=== PATIENT | male | born 1950 | race Caucasian/White ===

== ENCOUNTER 2020-09-02 18:30 | Inpatient (IN) | payer MEDICARE, OTHER ==
[~2020-09-02] VITALS: Ht 175.3 cm; Wt 91.6 kg
[2020-09-02] MEDS ORDERED: Omnipaque 350 100ml vial INJ PRN (19:00)
--- NOTE | 2020-09-02 19:00 | NUR ---
ED Nurse Note:pt. came from home with SOB on exersion, pt. is A/IOx4, VSS, blood was sent to labs, EKG done,covid done
--- NOTE | 2020-09-02 19:00 | Emergency Room Report ---
History of Present Illness General Chief Complaint: Dyspnea/Respdistress Source: Patient Present Illness HPI 69-year-old male history of hypertension, myasthenia gravis, diabetes, presents with shortness of breath over the past couple weeks, worse with exertion alleviated with rest severity is moderate, intermittent no chest pain no nausea no vomiting no fevers no chills no cough no congestion patient presents for evaluation of his shortness of breath he also received IVIG today Allergies: Coded Allergies: PENICILLINS (Verified Allergy, Unknown, 09/02/20) COVID-19 Screening Contact w/high risk pt: No Experienced COVID-19 symptoms?: Yes COVID-19 Testing performed BRIDGE WELDER: No Patient History Past Medical History: see triage record Reviewed Nursing Documentation: PMH: Agreed; PSxH: Agreed Nursing Documentation-PMH Past Medical History: No History, Except For Hx Diabetes: Yes Review of Systems All Other Systems: negative except mentioned in HPI Physical Exam Vital Signs Date Time Temp Pulse Resp B/P (MAP) Pulse Ox O2 Delivery O2 Flow Rate FiO2 09/02/20 18:35 98.4 104 20 170/81 (110) 92 Room Air Sp02 EP Interpretation: reviewed, normal General Appearance: well appearing, no apparent distress, alert Head: normocephalic, atraumatic Eyes: bilateral eye PERRL, bilateral eye EOMI ENT: uvula midline, moist mucus membranes Neck: supple, thyroid normal, supple/symm/no masses Respiratory: lungs clear, accessory muscle use, speaking full sentences Cardiovascular #1: normal peripheral pulses, no edema, no gallop, no murmur, tachycardia Gastrointestinal: non tender, soft, no guarding, no rebound Musculoskeletal: normal inspection Neurologic: alert, oriented x3 Psychiatric: mood/affect normal Skin: no rash, warm/dry Medical Decision Making Diagnostic Impression: Primary Impression: Respiratory distress Additional Impressions: Dyspnea Qualified Codes: R06.00 - Dyspnea, unspecified Tachycardia ER Course 69-year-old male presents with shortness of breath differential diagnosis includes ACS, myasthenia crisis, pneumonia, Covid Troponin negative, cannot conduct a negative inspiratory force however patient was pulling in good incentive spirometry volumes Covid negative, will admit patient for observation given Continued shortness of breath patient may need an echo cardiogram Chest x-ray negative no evidence of pneumonia we will admit patient for continued observation and treatment Patient admitted to Dr. Pham Laboratory Tests Test 09/02/20 19:00 09/02/20 19:07 White Blood Count 9.5 K/UL (4.8-10.8) Red Blood Count 4.80 M/UL (4.70-6.10) Hemoglobin 14.0 G/DL (14.2-18.0) L Hematocrit 43.3 % (42.0-52.0) Mean Corpuscular Volume 90 FL (80-99) Mean Corpuscular Hemoglobin 29.2 PG (27.0-31.0) Mean Corpuscular Hemoglobin Concent 32.4 G/DL (32.0-36.0) Red Cell Distribution Width 12.9 % (11.6-14.8) Platelet Count 310 K/UL (150-450) Mean Platelet Volume 6.5 FL (6.5-10.1) Neutrophils (%) (Auto) % (45.0-75.0) Lymphocytes (%) (Auto) % (20.0-45.0) Monocytes (%) (Auto) % (1.0-10.0) Eosinophils (%) (Auto) % (0.0-3.0) Basophils (%) (Auto) % (0.0-2.0) Differential Total Cells Counted 100 Neutrophils % (Manual) 82 % (45-75) H Lymphocytes % (Manual) 13 % (20-45) L Monocytes % (Manual) 5 % (1-10) Eosinophils % (Manual) 0 % (0-3) Basophils % (Manual) 0 % (0-2) Band Neutrophils 0 % (0-8) Platelet Estimate Adequate Platelet Morphology Normal Red Blood Cell Morphology Normal Sodium Level 140 MMOL/L (136-145) Potassium Level 4.2 MMOL/L (3.5-5.1) Chloride Level 100 MMOL/L (98-107) Carbon Dioxide Level 29 MMOL/L (21-32) Blood Urea Nitrogen 19 mg/dL (7-18) H Creatinine 1.5 MG/DL (0.55-1.30) H Estimated Glomerular Filtration Rate 46.4 mL/min (>60) Glucose Level 283 MG/DL (74-106) H Uric Acid 6.7 MG/DL (2.6-7.2) Calcium Level 9.3 MG/DL (8.5-10.1) Total Bilirubin 0.2 MG/DL (0.2-1.0) Aspartate Amino Transferase (AST) 26 U/L (15-37) Alanine Aminotransferase (ALT) 43 U/L (12-78) Alkaline Phosphatase 52 U/L (46-116) Total Creatine Kinase 174 U/L (26-308) Troponin I 0.017 ng/mL (0.000-0.056) Pro-B-Type Natriuretic Peptide 65 pg/mL (0-125) Total Protein 9.4 G/DL (6.4-8.2) H Albumin 3.8 G/DL (3.4-5.0) Globulin 5.6 g/dL Albumin/Globulin Ratio 0.7 (1.0-2.7) L POC Whole Blood Glucose Pending Microbiology Date/Time Source Procedure Growth Status 09/02/20 18:50 Nasopharynx SARS-CoV-2 RdRp Gene Assay - Final Complete EKG Diagnostic Results Troponin ordered: Yes When was troponin ordered?: Sep 02, 2020 - 1834 EKG Time: 18:50 EP Interpretation: Sinus tachycardia, rate 109, QTc 409, no acute ST elevations, normal axis Rhythm Strip Diag. Results Rhythm Strip Time: 18:59 EP Interpretation: yes Rate: 106 Rhythm: no PVC's, no ectopy, other - Sinus tachycardia Last Vital Signs Date Time Temp Pulse Resp B/P (MAP) Pulse Ox O2 Delivery O2 Flow Rate FiO2 09/02/20 18:35 98.4 104 20 170/81 (110) 92 Room Air Disposition: ADMITTED INPATIENT Condition: Stable Marc Ignacio MD Sep 02, 2020 19:00
[2020-09-02 19:08] LABS: HEMATOCRIT 43.3 % (42.0-52.0); MEAN CORPUSCULAR VOLUME 90 FL (80-99); PLATELET COUNT 310 K/UL (150-450); RED CELL DISTRIBUTION WIDTH 12.9 % (11.6-14.8); WHITE BLOOD COUNT 9.5 K/UL (4.8-10.8)
[2020-09-02 19:11] VITALS: BP 157/81
--- NOTE | 2020-09-02 19:14 | NUR ---
HAND-OFF: Report given to Liseth.
[2020-09-02 19:15] VITALS: BP 165/69
--- NOTE | 2020-09-02 19:15 | NUR ---
ED Nurse Note: Report received from KIMBERLY Montero. Patient is resting in bed. He is breathing normal and unlabored at this time with 97% o2 saturation on RA. He states breathing becomes difficult with exertion.
[2020-09-02 19:37] LABS: ALANINE AMINOTRANSFERASE 43 U/L (12-78); ALBUMIN 3.8 G/DL (3.4-5.0); ALBUMIN/GLOBULIN RATIO 0.7 (1.0-2.7); ALKALINE PHOSPHATASE 52 U/L (46-116); ASPARTATE AMINO TRANSFERASE 26 U/L (15-37); BILIRUBIN,TOTAL 0.2 MG/DL (0.2-1.0); BLOOD UREA NITROGEN 19 mg/dL (7-18); CALCIUM 9.3 MG/DL (8.5-10.1); CARBON DIOXIDE 29 MMOL/L (21-32); CHLORIDE 100 MMOL/L (98-107); CREATININE 1.5 MG/DL (0.55-1.30); POTASSIUM 4.2 MMOL/L (3.5-5.1); SODIUM 140 MMOL/L (136-145)
[2020-09-02] MEDS ORDERED: DiphenhydrAMINE 50mg/ml Inj IVP ONE (19:45)
[2020-09-02] MEDS ORDERED: Solu-MEDROL 125mg Inj IVP ONE (19:45)
[2020-09-02] MEDS ORDERED: EPINEPHrine 1mg/1ml Amp IM ONE (20:00)
[2020-09-02] MEDS ORDERED: Insulin Human Regular 100units/ml 3ml IV ONE (20:00)
--- NOTE | 2020-09-02 20:00 | NUR ---
ED Nurse Note: REYNALDO bedside speaking with patient. Patient refused CT at this time. He is very concerned with his elevated BP and blood sugar. Will administer BP medication and insulin as ordered. Pt states he is allergic to contrast. Patient agreed with hospital admission.
[2020-09-02] MEDS ORDERED: AMLODIPINE BESYL5 MG ORAL (20:19)
[2020-09-02] MEDS ORDERED: LANTUS SOL100 UNIT/1 SUBQ (20:19)
[2020-09-02] MEDS ORDERED: PYRIDOSTIGMINE60 MG ORAL (20:19)
[2020-09-02] MEDS ORDERED: LOTENSIN20 MG ORAL (20:19)
[2020-09-02] MEDS ORDERED: ASPIRIN81 MG ORAL (20:19)
[2020-09-02] MEDS ORDERED: CRESTOR10 M2 ORAL (20:19)
[2020-09-02] MEDS ORDERED: TRULICITY0.75 MG/0. SQ (20:19)
--- NOTE | 2020-09-02 20:45 | NUR ---
ED Nurse Note: Report given to KIMBERLY Duque. Patient states "I feel better now".
[2020-09-02] MEDS ORDERED: Promethazine/Codeine 5ml UD ORAL PRN (21:15)
[2020-09-02] MEDS ORDERED: Zolpidem 5mg tab ORAL PRN (21:15)
[2020-09-02] MEDS ORDERED: Miralax 17gm pkt ORAL PRN (21:15)
[2020-09-02 21:22] VITALS: BP 149/65
--- NOTE | 2020-09-02 21:29 | NUR ---
ED Nurse Note: Patient accu check shows Blood Sugar of 221 at this time.
--- NOTE | 2020-09-02 21:30 | NUR ---
ED Nurse Note: Patient is stable for transfer to tele unit at this time as ordered. He is aaox4, breathing is normal at this time. NAD noted. Patient taken to unit via gurney while connected to associate director career services by keara and RN. He took all belongings with him. IV is patent.
[2020-09-02 21:38] LABS: CREATINE KINASE 174 U/L (26-308)
--- NOTE | 2020-09-02 22:15 | NUR ---
NURSE NOTES: Pt received from KIMBERLY Childers. Pt is sitting at the bedside and denies any pain. Admitting vitals T 98.1 P79 BP137/58 O2 98% R20. Pt is A/Ox4 and ambulatory; pt c/o mild shortness of breath with standing and walking. Pt is on cardiac monitoring SR and asymptomatic. Pt is sating well on RA and c/o SOB. Pt has IV RAC 20G SL patent with skin dry and intact. Pt voids and is continent x2. Pt has diminished lung sounds bilaterally. Bowel sounds active x4. PMSCx4 and strength 5/5. Bed is locked in lowest position and call light is within reach. Will continue to monitor. Addendum: 09/03/20 at 0021 by Neto Hare RN Pt has no pressure ulcers or wounds. Pt c/o redness of face without fever, pain, or headache.
--- NOTE | 2020-09-02 22:20 | NUR ---
NURSE NOTES: Admitting orders received from Dr. Pham and Dr. Nugyen. Will continue to monitor.
[2020-09-03] VITALS: BP 137/58
[2020-09-03 04:00] VITALS: BP 151/57
[2020-09-03] MEDS: NovoLOG Insulin Flexpen SUBQ SCH ×4 (06:39→21:05)
[2020-09-03 06:44] LABS: BASOPHILS % (AUTO) 0.7 % (0.0-2.0); EOSINOPHILS % (AUTO) 0.2 % (0.0-3.0); HEMATOCRIT 44.5 % (42.0-52.0); HEMOGLOBIN 14.1 G/DL (14.2-18.0); LYMPHOCYTES % (AUTO) 15.9 % (20.0-45.0); MEAN CORPUSCULAR VOLUME 92 FL (80-99); MONOCYTES % (AUTO) 11.4 % (1.0-10.0); NEUTROPHILS % (AUTO) 71.9 % (45.0-75.0); PLATELET COUNT 318 K/UL (150-450); RED BLOOD COUNT 4.84 M/UL (4.70-6.10); RED CELL DISTRIBUTION WIDTH 13.2 % (11.6-14.8); WHITE BLOOD COUNT 9.7 K/UL (4.8-10.8)
[2020-09-03 07:12] LABS: ALANINE AMINOTRANSFERASE 42 U/L (12-78); ALBUMIN 3.8 G/DL (3.4-5.0); ALBUMIN/GLOBULIN RATIO 0.7 (1.0-2.7); ALKALINE PHOSPHATASE 43 U/L (46-116); ASPARTATE AMINO TRANSFERASE 23 U/L (15-37); BILIRUBIN,TOTAL 0.2 MG/DL (0.2-1.0); BLOOD UREA NITROGEN 13 mg/dL (7-18); CALCIUM 8.8 MG/DL (8.5-10.1); CHOLESTEROL 134 MG/DL (< 200); CREATININE 1.1 MG/DL (0.55-1.30); HDL CHOLESTEROL 64 MG/DL (40-60); TRIGLYCERIDES 101 MG/DL (30-150)
--- NOTE | 2020-09-03 07:20 | NUR ---
NURSE HAND-OFF REPORT: Important Events on Shift:Pt admitted to tele unit. C/O of mild shortness of breath with exertion Patient Status: Stable and breathing unlabored at rest Diet: CCHO Medium Pending Orders: Pending Results/Labs:AM Labs Pending MD notification: Latest Vital Signs: Temperature 97.9 , Pulse 88 , B/P 151 /57 , Respiratory Rate 18 , O2 SAT 97 , Room Air, O2 Flow Rate . Vital Sign Comment: VSS EKG Rhythm: Sinus Rhythm Rhythm change?: N MD Notified?: - MD Response: Latest Sarabia Fall Score: 20 Fall Risk: Low Risk Safety Measures: Call light Within Reach, Bed Alarm , Side Rails Side Rails x2, Bed position Low and Locked. Fall Precautions: Patient Fall Education Report given to KIMBERLY Fung.
[2020-09-03 07:28] LABS: ANION GAP 10 mmol/L (5-15); CARBON DIOXIDE 29 MMOL/L (21-32); CHLORIDE 99 MMOL/L (98-107); POTASSIUM 3.6 MMOL/L (3.5-5.1); SODIUM 138 MMOL/L (136-145)
[2020-09-03 07:30] LABS: APPEARANCE,URINE CLEAR; BILIRUBIN, URINE NEGATIVE (NEGATIVE); COLOR,URINE PALE YELLOW; GLUCOSE, URINE (UA) 1+ (NEGATIVE); KETONES,URINE NEGATIVE (NEGATIVE); LEUKOCYTE ESTERASE ,URINE NEGATIVE (NEGATIVE); NITRITE,URINE NEGATIVE (NEGATIVE); PH,URINE 6 (4.5-8.0); PROTEIN,URINE NEGATIVE (NEGATIVE); UROBILINOGEN,URINE NORMAL MG/DL (0.0-1.0)
[2020-09-03 08:00] VITALS: BP 155/74
--- NOTE | 2020-09-03 08:00 | NUR ---
NURSE NOTES: Pt awake/alert in bed, breathing easily on room air, denies SOB and denies pain at this time. Vital signs stable with SR @ 91 on monitor. IV access RAC flushed with 10 ml NS and locked. Pt own medication taken to pharmacy. Bed left in low position, side rails up x 2 and call light left near pt's hand.
[2020-09-03] MEDS: Theophylline ER 100mg ORAL SCH ×2 (08:17→20:55)
[2020-09-03] MEDS ORDERED: CELLCEPT500 MG ORAL (08:56)
[2020-09-03] MEDS: Heparin 5000 units/ml inj SUBQ SCH ×2 (09:00→21:00)
[2020-09-03] MEDS ORDERED: Pyridostigmine 60mg tab ORAL SCH (09:00)
[2020-09-03] MEDS ORDERED: JENTADUETO 2.51 EACH PO (10:45)
[2020-09-03 12:00] VITALS: BP 144/67
[2020-09-03] MEDS: Pyridostigmine 60mg tab ORAL SCH ×3 (13:13→17:37)
--- NOTE | 2020-09-03 14:13 | History & Physical ---
History and Physical History & Physicial Gualberto Pham MD Sep 03, 2020 14:13
[2020-09-03] MEDS ORDERED: Albuterol/Ipratropium 3ml neb HHN PRN (14:45)
--- NOTE | 2020-09-03 14:50 | Consultation ---
History of Present Illness General Date patient seen: Sep 03, 2020 Chief Complaint: Dyspnea/Respdistress Present Illness HPI 69-year-old male with history of hypertension, myasthenia gravis, diabetes, Ex- smoker presented to ER with CC of shortness of breath over the past couple we eks, worse with exertion no chest pain, no cough no congestion. He also received IVIG yesterday and thinks that he had an allergic reaction to that. Allergies: Coded Allergies: PENICILLINS (Verified Allergy, Unknown, 09/02/20) Medication History Scheduled Amlodipine Besylate* (Amlodipine Besylate*), 5 MG ORAL DAILY, (Reported) Aspirin* (Aspirin*), 81 MG ORAL DAILY, (Reported) Benazepril Hcl* (Lotensin*), 10 MG ORAL DAILY, (Reported) Insulin Glargine (Lantus), 0 SUBQ BEDTIME, (Reported) Linagliptin/Metformin Hcl (Jentadueto 2.5 Mg-500 Mg Tab), 1 EACH PO EVERY 12 HOURS, (Reported) Mycophenolate Mofetil (Cellcept), 1,000 MG ORAL EVERY 12 HOURS, (Reported) Pyridostigmine Arcadia* (Mestinon*), 120 MG ORAL FIVE TIMES A DAY, (Reported) Rosuvastatin Calcium* (Crestor*), 10 MG ORAL DAILY, (Reported) Miscellaneous Medications Dulaglutide (Trulicity), 0.75 MG SQ, (Reported) Patient History Healthcare decision maker Resuscitation status Advanced Directive on File Past Medical/Surgical History Past Medical/Surgical History: (1) Ex-smoker for more than 1 year (2) Myasthenia gravis (3) Tachycardia (4) Dyspnea Review of Systems All Other Systems: negative except mentioned in HPI Physical Exam General Appearance: WD/WN, no apparent distress, alert Lines, tubes and drains: peripheral HEENT: normocephalic, atraumatic Neck: non-tender, normal alignment Respiratory/Chest: chest wall non-tender, crackles/rales Cardiovascular/Chest: normal peripheral pulses, normal rate Abdomen: normal bowel sounds Skin Exam: normal pigmentation, warm/dry Last 24 Hour Vital Signs Date Time Temp Pulse Resp B/P (MAP) Pulse Ox O2 Delivery O2 Flow Rate FiO2 09/03/20 12:00 81 09/03/20 11:30 155/74 09/03/20 08:31 88 09/03/20 08:31 Room Air 09/03/20 08:17 88 151/57 09/03/20 08:00 97.7 82 18 155/74 (101) 97 09/03/20 04:00 88 09/03/20 04:00 97.9 88 18 151/57 (88) 97 09/03/20 00:00 98.1 79 20 137/58 (84) 98 09/03/20 00:00 92 09/02/20 23:30 Room Air 09/02/20 22:49 93 18 95 Room Air 21 09/02/20 22:49 96 18 95 Room Air 21 09/02/20 21:30 98.5 106 18 151/66 97 Room Air 09/02/20 21:22 98.6 104 18 149/65 96 Room Air 09/02/20 20:09 105 170/71 09/02/20 19:15 98.4 104 19 165/69 97 Room Air 09/02/20 19:11 98.4 102 20 157/81 97 Room Air 09/02/20 19:11 102 20 Room Air 09/02/20 18:35 98.4 104 20 170/81 (110) 92 Room Air Intake and Output 09/02/20 09/03/20 19:00 07:00 Intake Total 1500 ml Balance 1500 ml Intake Oral 1500 ml # Voids 6 # Bowel Movements 1 Laboratory Tests Test 09/02/20 19:00 09/02/20 19:07 09/03/20 02:09 09/03/20 05:56 White Blood Count 9.5 K/UL (4.8-10.8) Red Blood Count 4.80 M/UL (4.70-6.10) Hemoglobin 14.0 G/DL (14.2-18.0) L Hematocrit 43.3 % (42.0-52.0) Mean Corpuscular Volume 90 FL (80-99) Mean Corpuscular Hemoglobin 29.2 PG (27.0-31.0) Mean Corpuscular Hemoglobin Concent 32.4 G/DL (32.0-36.0) Red Cell Distribution Width 12.9 % (11.6-14.8) Platelet Count 310 K/UL (150-450) Mean Platelet Volume 6.5 FL (6.5-10.1) Neutrophils (%) (Auto) % (45.0-75.0) Lymphocytes (%) (Auto) % (20.0-45.0) Monocytes (%) (Auto) % (1.0-10.0) Eosinophils (%) (Auto) % (0.0-3.0) Basophils (%) (Auto) % (0.0-2.0) Differential Total Cells Counted 100 Neutrophils % (Manual) 82 % (45-75) H Lymphocytes % (Manual) 13 % (20-45) L Monocytes % (Manual) 5 % (1-10) Eosinophils % (Manual) 0 % (0-3) Basophils % (Manual) 0 % (0-2) Band Neutrophils 0 % (0-8) Platelet Estimate Adequate Platelet Morphology Normal Red Blood Cell Morphology Normal Sodium Level 140 MMOL/L (136-145) Potassium Level 4.2 MMOL/L (3.5-5.1) Chloride Level 100 MMOL/L (98-107) Carbon Dioxide Level 29 MMOL/L (21-32) Blood Urea Nitrogen 19 mg/dL (7-18) H Creatinine 1.5 MG/DL (0.55-1.30) H Estimat Glomerular Filtration Rate 46.4 mL/min (>60) Glucose Level 283 MG/DL (74-106) H Uric Acid 6.7 MG/DL (2.6-7.2) Calcium Level 9.3 MG/DL (8.5-10.1) Total Bilirubin 0.2 MG/DL (0.2-1.0) Aspartate Amino Transf (AST/SGOT) 26 U/L (15-37) Alanine Aminotransferase (ALT/SGPT) 43 U/L (12-78) Alkaline Phosphatase 52 U/L (46-116) Total Creatine Kinase 174 U/L (26-308) Troponin I 0.017 ng/mL (0.000-0.056) Pro-B-Type Natriuretic Peptide 65 pg/mL (0-125) Total Protein 9.4 G/DL (6.4-8.2) H Albumin 3.8 G/DL (3.4-5.0) Globulin 5.6 g/dL Albumin/Globulin Ratio 0.7 (1.0-2.7) L POC Whole Blood Glucose Pending Pending 144 MG/DL (74-106) H Test 09/03/20 06:15 09/03/20 12:00 White Blood Count 9.7 K/UL (4.8-10.8) Red Blood Count 4.84 M/UL (4.70-6.10) Hemoglobin 14.1 G/DL (14.2-18.0) L Hematocrit 44.5 % (42.0-52.0) Mean Corpuscular Volume 92 FL (80-99) Mean Corpuscular Hemoglobin 29.1 PG (27.0-31.0) Mean Corpuscular Hemoglobin Concent 31.6 G/DL (32.0-36.0) L Red Cell Distribution Width 13.2 % (11.6-14.8) Platelet Count 318 K/UL (150-450) Mean Platelet Volume 6.4 FL (6.5-10.1) L Neutrophils (%) (Auto) 71.9 % (45.0-75.0) Lymphocytes (%) (Auto) 15.9 % (20.0-45.0) L Monocytes (%) (Auto) 11.4 % (1.0-10.0) H Eosinophils (%) (Auto) 0.2 % (0.0-3.0) Basophils (%) (Auto) 0.7 % (0.0-2.0) Sodium Level 138 MMOL/L (136-145) Potassium Level 3.6 MMOL/L (3.5-5.1) Chloride Level 99 MMOL/L (98-107) Carbon Dioxide Level 29 MMOL/L (21-32) Anion Gap 10 mmol/L (5-15) Blood Urea Nitrogen 13 mg/dL (7-18) Creatinine 1.1 MG/DL (0.55-1.30) Estimat Glomerular Filtration Rate > 60 mL/min (>60) Glucose Level 134 MG/DL (74-106) #H Calcium Level 8.8 MG/DL (8.5-10.1) Total Bilirubin 0.2 MG/DL (0.2-1.0) Aspartate Amino Transf (AST/SGOT) 23 U/L (15-37) Alanine Aminotransferase (ALT/SGPT) 42 U/L (12-78) Alkaline Phosphatase 43 U/L (46-116) L Total Protein 9.1 G/DL (6.4-8.2) H Albumin 3.8 G/DL (3.4-5.0) Globulin 5.3 g/dL Albumin/Globulin Ratio 0.7 (1.0-2.7) L Triglycerides Level 101 MG/DL (30-150) Cholesterol Level 134 MG/DL (< 200) LDL Cholesterol 53 mg/dL (<100) HDL Cholesterol 64 MG/DL (40-60) H Cholesterol/HDL Ratio 2.1 (3.3-4.4) L POC Whole Blood Glucose 207 MG/DL (74-106) H Microbiology Date/Time Source Procedure Growth Status 09/02/20 18:50 Nasopharynx SARS-CoV-2 RdRp Gene Assay - Final Complete Height (Feet): 5 Height (Inches): 9.00 Weight (Pounds): 202 Medications Current Medications Medications (Trade) Dose Ordered Sig/Samina Route PRN Reason Start Time Stop Time Status Last Admin Dose Admin Acetaminophen (Tylenol) 650 mg Q4H PRN ORAL fever 09/02/20 21:15 10/02/20 21:14 Amlodipine Besylate (Norvasc) 5 mg DAILY ORAL 09/03/20 09:00 10/03/20 08:59 09/03/20 08:17 Aspirin (Ecotrin) 81 mg DAILY ORAL 09/04/20 09:00 10/19/20 08:59 Benazepril HCl (Lotensin) 20 mg EVERY 12 HOURS ORAL 09/03/20 21:00 10/03/20 20:59 Dextrose (Dextrose 50%) 25 ml Q30M PRN IV Hypoglycemia 09/02/20 21:15 12/01/20 21:14 Dextrose (Dextrose 50%) 50 ml Q30M PRN IV Hypoglycemia 09/02/20 21:15 12/01/20 21:14 Heparin Sodium (Porcine) (Heparin 5000 units/ml) 5,000 units EVERY 12 HOURS SUBQ 09/03/20 09:00 10/18/20 08:59 Insulin Aspart (NovoLOG) BEFORE MEALS AND HS SUBQ 09/03/20 06:30 12/02/20 06:29 09/03/20 11:30 Mycophenolate Mofetil (Cellcept) 500 mg TWICE A DAY ORAL 09/03/20 18:00 12/02/20 17:59 Ondansetron HCl (Zofran) 4 mg Q6H PRN IVP Nausea & Vomiting 09/02/20 21:15 10/02/20 21:14 Patient Own Medication (Patient's Own Med) 1 ea BID ORAL 09/03/20 18:00 10/03/20 17:59 Polyethylene Glycol (Miralax) 17 gm HSPRN PRN ORAL Constipation 09/02/20 21:15 10/02/20 21:14 Promethazine HCl/ Codeine (Phenergan with Codeine) 5 ml Q4H PRN ORAL For Cough 09/02/20 21:15 10/02/20 21:14 Pyridostigmine Arcadia (Mestinon) 120 mg FIVE TIMES A DAY ORAL 09/03/20 13:00 12/02/20 08:59 09/03/20 13:13 Theophylline (Sukhi-Dur) 100 mg EVERY 12 HOURS ORAL 09/03/20 09:00 12/02/20 08:59 09/03/20 08:17 Zolpidem Tartrate (Ambien) 5 mg HSPRN PRN ORAL Insomnia 09/02/20 21:15 09/09/20 21:14 Assessment/Plan Problem List: (1) Acute respiratory failure ICD Codes: J96.00 - Acute respiratory failure, unspecified whether with hypoxia or hypercapnia SNOMED: 16540437 (2) Allergic asthma ICD Codes: J45.909 - Unspecified asthma, uncomplicated SNOMED: 226283933, 739456877 (3) COPD (chronic obstructive pulmonary disease) ICD Codes: J44.9 - Chronic obstructive pulmonary disease, unspecified SNOMED: 94582827 (4) Myasthenia gravis ICD Codes: G70.00 - Myasthenia gravis without (acute) exacerbation SNOMED: 19805193 (5) Ex-smoker for more than 1 year ICD Codes: Z87.891 - Personal history of nicotine dependence SNOMED: 17439658410373 (6) History of hypertension ICD Codes: Z86.79 - Personal history of other diseases of the circulatory system SNOMED: 275436713 (7) Diabetes mellitus ICD Codes: E11.9 - Type 2 diabetes mellitus without complications SNOMED: 71774506 Assessment/Plan: cxr showed cardiomegaly and possible left effusion. Pt's BNP is normal and he doesn't have any peripheral edema. symptomatic treatment respiratory treatment titrate fio2 to sat of 92% resume Myasthenia medication including Cellcept and Mestinon. US of the chest to evaluate for pleural effusion dvt prophylaxis sliding scale and diabetic diet Jose Juan Palafox MD Sep 03, 2020 14:50
--- NOTE | 2020-09-03 14:58 | NUR ---
CASE MANAGEMENT:REVIEW WALKED INTO ER CC: SOB SI: RESPIRATORY DISTRESS. TACHYCARDIA. DYSPNES 98.4 104 20 170/81 92% ON RA BUN+19 CR+1.5 GLUCOSE+283 TROPONIN(-) IS: IV INSULIN IV SOLUMEDROL IV BENADRYL NORVASC PO CTA CHEST (REFUSED) : TO TELEMETRY
[2020-09-03 16:00] VITALS: BP 146/78
--- NOTE | 2020-09-03 16:36 | Diagnostic Imaging Report ---
Indication: Shortness of breath Technique: One view of the chest Comparison: none Findings: Suboptimal inspiration with elevation left hemidiaphragm. There is atelectasis at the left lung base. The heart size is normal. There is evidence of prior CABG Impression: Hypoventilatory exam with left basilar atelectasis. No acute process otherwise
--- NOTE | 2020-09-03 17:12 | Diagnostic Imaging Report ---
Indication: Abnormal renal function tests Technique: Grayscale and duplex images of the kidneys, retroperitoneum, and bladder were obtained. Comparison: none Findings: Right kidney measures 12.1 cm in length. Left kidney measures 12 cm in length. Both kidneys demonstrate normal echogenicity. No hydronephrosis. Small left renal cysts are demonstrated.. Normal inferior vena cava. Bladder is normal. Impression: Essentially unremarkable exam Incidental finding left renal cysts.
[2020-09-03] MEDS: JENTADUETO ORAL SCH (17:37)
[2020-09-03] MEDS: Mycophenolate 250mg cap ORAL SCH (17:37)
--- NOTE | 2020-09-03 17:49 | Diagnostic Imaging Report ---
Indication: Bilateral leg pain Technique: Grayscale and duplex images of the bilateral lower extremity veins Comparison: Findings: Bilaterally, grayscale and duplex images demonstrate no evidence of intraluminal thrombus. Normal phasic Doppler waveforms, demonstrating normal augmentation response and no evidence of valvular insufficiency. Greater saphenous vein(s) and tibial veins are patent. Normal compressibility. Impression: Negative for evidence of lower extremity deep venous thrombosis bilaterally
--- NOTE | 2020-09-03 18:12 | Diagnostic Imaging Report ---
EXAM: US Chest CLINICAL HISTORY: PLEFF TECHNIQUE: Real-time ultrasound of the chest with image documentation. COMPARISON: No relevant prior studies available. FINDINGS: Pleural space: No pleural effusion. Soft tissues: Unremarkable. No mass or fluid collection. Lymph nodes: Unremarkable. No lymphadenopathy. IMPRESSION: No pleural effusion.
--- NOTE | 2020-09-03 18:35 | Cardiology Progress Note ---
Assessment/Plan Assessment/Plan tp seen and examied improved bu nto back to bse lien decreased bs ntoed bialtear he dneis any cp o dizziness no cough nio fevefr but feel poor petitie bnp normal echo prelin norl ekg neg will repat trop and ekg in am hhn Objective Last 24 Hour Vital Signs Date Time Temp Pulse Resp B/P (MAP) Pulse Ox O2 Delivery O2 Flow Rate FiO2 09/03/20 16:00 82 09/03/20 16:00 98.0 82 18 146/78 (100) 95 09/03/20 12:00 97.4 85 16 144/67 (92) 96 09/03/20 12:00 81 09/03/20 11:30 155/74 09/03/20 08:31 88 09/03/20 08:31 Room Air 09/03/20 08:17 88 151/57 09/03/20 08:00 97.7 82 18 155/74 (101) 97 09/03/20 04:00 88 09/03/20 04:00 97.9 88 18 151/57 (88) 97 09/03/20 00:00 98.1 79 20 137/58 (84) 98 09/03/20 00:00 92 09/02/20 23:30 Room Air 09/02/20 22:49 93 18 95 Room Air 21 09/02/20 22:49 96 18 95 Room Air 21 09/02/20 21:30 98.5 106 18 151/66 97 Room Air 09/02/20 21:22 98.6 104 18 149/65 96 Room Air 09/02/20 20:09 105 170/71 09/02/20 19:15 98.4 104 19 165/69 97 Room Air 09/02/20 19:11 98.4 102 20 157/81 97 Room Air 09/02/20 19:11 102 20 Room Air 09/02/20 18:35 98.4 104 20 170/81 (110) 92 Room Air Intake and Output 09/02/20 09/03/20 19:00 07:00 Intake Total 1500 ml Balance 1500 ml Intake Oral 1500 ml # Voids 6 # Bowel Movements 1 Laboratory Tests Test 09/02/20 19:00 09/02/20 19:07 09/03/20 02:09 09/03/20 05:56 White Blood Count 9.5 K/UL (4.8-10.8) Red Blood Count 4.80 M/UL (4.70-6.10) Hemoglobin 14.0 G/DL (14.2-18.0) L Hematocrit 43.3 % (42.0-52.0) Mean Corpuscular Volume 90 FL (80-99) Mean Corpuscular Hemoglobin 29.2 PG (27.0-31.0) Mean Corpuscular Hemoglobin Concent 32.4 G/DL (32.0-36.0) Red Cell Distribution Width 12.9 % (11.6-14.8) Platelet Count 310 K/UL (150-450) Mean Platelet Volume 6.5 FL (6.5-10.1) Neutrophils (%) (Auto) % (45.0-75.0) Lymphocytes (%) (Auto) % (20.0-45.0) Monocytes (%) (Auto) % (1.0-10.0) Eosinophils (%) (Auto) % (0.0-3.0) Basophils (%) (Auto) % (0.0-2.0) Differential Total Cells Counted 100 Neutrophils % (Manual) 82 % (45-75) H Lymphocytes % (Manual) 13 % (20-45) L Monocytes % (Manual) 5 % (1-10) Eosinophils % (Manual) 0 % (0-3) Basophils % (Manual) 0 % (0-2) Band Neutrophils 0 % (0-8) Platelet Estimate Adequate Platelet Morphology Normal Red Blood Cell Morphology Normal Sodium Level 140 MMOL/L (136-145) Potassium Level 4.2 MMOL/L (3.5-5.1) Chloride Level 100 MMOL/L (98-107) Carbon Dioxide Level 29 MMOL/L (21-32) Blood Urea Nitrogen 19 mg/dL (7-18) H Creatinine 1.5 MG/DL (0.55-1.30) H Estimat Glomerular Filtration Rate 46.4 mL/min (>60) Glucose Level 283 MG/DL (74-106) H Uric Acid 6.7 MG/DL (2.6-7.2) Calcium Level 9.3 MG/DL (8.5-10.1) Total Bilirubin 0.2 MG/DL (0.2-1.0) Aspartate Amino Transf (AST/SGOT) 26 U/L (15-37) Alanine Aminotransferase (ALT/SGPT) 43 U/L (12-78) Alkaline Phosphatase 52 U/L (46-116) Total Creatine Kinase 174 U/L (26-308) Troponin I 0.017 ng/mL (0.000-0.056) Pro-B-Type Natriuretic Peptide 65 pg/mL (0-125) Total Protein 9.4 G/DL (6.4-8.2) H Albumin 3.8 G/DL (3.4-5.0) Globulin 5.6 g/dL Albumin/Globulin Ratio 0.7 (1.0-2.7) L POC Whole Blood Glucose Pending Pending 144 MG/DL (74-106) H Test 09/03/20 06:15 09/03/20 12:00 09/03/20 17:28 White Blood Count 9.7 K/UL (4.8-10.8) Red Blood Count 4.84 M/UL (4.70-6.10) Hemoglobin 14.1 G/DL (14.2-18.0) L Hematocrit 44.5 % (42.0-52.0) Mean Corpuscular Volume 92 FL (80-99) Mean Corpuscular Hemoglobin 29.1 PG (27.0-31.0) Mean Corpuscular Hemoglobin Concent 31.6 G/DL (32.0-36.0) L Red Cell Distribution Width 13.2 % (11.6-14.8) Platelet Count 318 K/UL (150-450) Mean Platelet Volume 6.4 FL (6.5-10.1) L Neutrophils (%) (Auto) 71.9 % (45.0-75.0) Lymphocytes (%) (Auto) 15.9 % (20.0-45.0) L Monocytes (%) (Auto) 11.4 % (1.0-10.0) H Eosinophils (%) (Auto) 0.2 % (0.0-3.0) Basophils (%) (Auto) 0.7 % (0.0-2.0) Sodium Level 138 MMOL/L (136-145) Potassium Level 3.6 MMOL/L (3.5-5.1) Chloride Level 99 MMOL/L (98-107) Carbon Dioxide Level 29 MMOL/L (21-32) Anion Gap 10 mmol/L (5-15) Blood Urea Nitrogen 13 mg/dL (7-18) Creatinine 1.1 MG/DL (0.55-1.30) Estimat Glomerular Filtration Rate > 60 mL/min (>60) Glucose Level 134 MG/DL (74-106) #H Calcium Level 8.8 MG/DL (8.5-10.1) Total Bilirubin 0.2 MG/DL (0.2-1.0) Aspartate Amino Transf (AST/SGOT) 23 U/L (15-37) Alanine Aminotransferase (ALT/SGPT) 42 U/L (12-78) Alkaline Phosphatase 43 U/L (46-116) L Total Protein 9.1 G/DL (6.4-8.2) H Albumin 3.8 G/DL (3.4-5.0) Globulin 5.3 g/dL Albumin/Globulin Ratio 0.7 (1.0-2.7) L Triglycerides Level 101 MG/DL (30-150) Cholesterol Level 134 MG/DL (< 200) LDL Cholesterol 53 mg/dL (<100) HDL Cholesterol 64 MG/DL (40-60) H Cholesterol/HDL Ratio 2.1 (3.3-4.4) L POC Whole Blood Glucose 207 MG/DL (74-106) H 195 MG/DL (74-106) H Microbiology Date/Time Source Procedure Growth Status 09/02/20 18:50 Nasopharynx SARS-CoV-2 RdRp Gene Assay - Final Complete Mehdi Hammonds MD Sep 03, 2020 18:35
--- NOTE | 2020-09-03 19:00 | History and Physical Report ---
DATE OF ADMISSION: 09/02/2020 CHIEF COMPLAINT: Shortness of breath on exertion. HISTORY OF PRESENT ILLNESS: This is a 69-year-old very delightful gentleman with past medical history significant for diabetes type 2, hypertension, history of hepatitis C positive status post Harvoni therapy for 12 weeks in 2014, and myasthenia gravis status post thymectomy in 2000, who presented to the emergency department complaining about shortness of breath, worsening on exertion. It has been progressively worsening over past couple of weeks he said to the point that when he starts moving a little bit he becomes more out of breath and difficulty ambulating. He denies any chest pain, cough, or chest congestion. He has been under therapy by Dr. Jonathan Olsen at [facility] at the [facility] for treatment of myasthenia gravis. He has been receiving IVIG as well as steroid therapy. Last immunotherapy was yesterday and he said that after that he started having worsening of shortness of breath, could not take a deep breath and subsequently the patient was transferred to the hospital. Shortly after initial evaluation in the emergency department, the patient was admitted to the hospital with dyspnea on exertion, possibly due to allergic reaction to medication. PAST MEDICAL HISTORY AND PAST SURGICAL HISTORY: As above, history of myasthenia gravis status post thymectomy in 2000, history of hepatitis C positive status post Harvoni therapy of 12 weeks in 2014, diabetes type 2, hypertension, and ex-smoker. The patient quit smoking in 2012. ALLERGIES: Penicillin. SOCIAL HISTORY: Denies any alcohol or substance abuse. He is . He lives with his . FAMILY HISTORY: Noncontributory. REVIEW OF SYSTEMS: Mostly as above. Denies any dysuria or frequency. Denies any hemoptysis or hematochezia. Denies any bright red blood per rectum. Denies any loss of consciousness. Denies any fall or head trauma. The patient has poor appetite. Denies any joint pain or arthritic joint pain. MEDICATIONS AT HOME: Significant for amlodipine, aspirin, Lotensin, Januvia with metformin. The patient is on CellCept, Mestinon, Crestor, and Trulicity. PHYSICAL EXAMINATION: VITAL SIGNS: On admission from the ER, temperature 98.4, pulse of 104, respirations 20, and blood pressure 170/81. GENERAL: The patient is awake and responsive, in no acute distress. HEAD AND NECK: Pupils are equal and reactive to light. Extraocular movements intact. Neck was supple. No JVD. LUNGS: Good air entry. No wheezes or rales. Decreased air in the bases. HEART: S1, S2. Regular rhythm. No murmur or gallops. ABDOMEN: Soft, nondistended, and nontender. Positive bowel sounds. Morbidly obese. EXTREMITIES: No cyanosis, clubbing, or edema. NEUROLOGIC: Cranial nerves II through XII grossly normal. Motor is 5/5 in all extremities. LABORATORY DATA: On admission from the emergency department, WBC of 9.5, hemoglobin 14, hematocrit 43, and platelets 330,000. The patient's sodium 140, potassium 4.2, chloride 100, bicarb 29, BUN 19, creatinine 1.5. GFR is 46.4. Glucose level is 283. Calcium is 9.3. Total bilirubin of 0.2, AST of 26, ALT of 43. First troponin 0.017. Total protein is 9.4. UA is +1 glucose. COVID-19 test is negative. The patient had a chest x-ray, hypoventilated exam with left basal atelectasis, no acute process. Duplex of lower extremity, negative for evidence of the lower extremity deep vein thrombosis bilaterally. ASSESSMENT: 1. Shortness of breath, possibly due to worsening of myasthenia gravis, however, cannot rule out allergic reaction. 2. The patient is an ex-smoker. 3. Acute hypoxemic respiratory failure. 4. Myasthenia gravis, status post thymectomy in 2000. 5. Diabetes type 2, poorly controlled. 6. Hypertension. 7. Chronic kidney disease. 8. Hepatitis C positive status post Harvoni therapy. PLAN: 1. Admit the patient to monitored unit. 2. We will follow up with Dr. Palafox, Pulmonary and Critical Care recommendation. 3. We obtained records from the [facility], reviewed and noted the patient has been on IVIG as well as CellCept therapy. 4. Code status is Full Code. 5. DVT prophylaxis, heparin subcutaneous. 6. We will monitor blood glucose level closely. 7. We will follow up with nephrology consultation with Dr. Ramirez. Gualberto Pham M.D. DR: EVELIA JOB#: [id number] CC:
[2020-09-03] MEDS: Albuterol/Ipratropium 3ml neb HHN SCH (19:10)
[2020-09-03 20:00] VITALS: BP 159/72
[2020-09-04] VITALS: BP 144/80
[2020-09-04] MEDS: Albuterol/Ipratropium 3ml neb HHN SCH ×2 (01:22→07:38)
[2020-09-04 04:00] VITALS: BP 153/57
[2020-09-04] MEDS: NovoLOG Insulin Flexpen SUBQ SCH (06:44)
--- NOTE | 2020-09-04 07:30 | NUR ---
NURSE NOTES: RECEIVED PATIENT A/A/OX4, IN CHAIR. HAD BREAKFAST. TOLERATING FOOD INTAKE WELL. NO ACUTE RESP DISTRESS NOTED. PATIENT APPEARED TO BE TALKATIVE. DENIES OF PAIN. PIV PATENT AND INTACT. ON PRESS ASSISTANT AND FEEDER. KEPT BED IN THE LOWEST POSITION. SIDERAILS ARE UPX2. CALL LIGHT WITHIN EASY REACH. KEPT BED ON LOCK MODE AND ALARM ENGAGED. WILL CONT TO MONITOR.
[2020-09-04 08:00] VITALS: BP 128/53
--- NOTE | 2020-09-04 08:07 | NUR ---
NURSE HAND-OFF REPORT: Important Events on Shift:Pt received breathing treatment and reports relief of SOB Patient Status: Breathing unlabored Diet: CCHO Medium Pending Orders: Dialysis Pending Results/Labs:AM Labs Pending MD notification: Latest Vital Signs: Temperature 97.9 , Pulse 88 , B/P 153 /57 , Respiratory Rate 18 , O2 SAT 97 , Room Air, O2 Flow Rate . Vital Sign Comment: VSS EKG Rhythm: Sinus Rhythm Rhythm change?: N MD Notified?: - MD Response: Latest Sarabia Fall Score: 20 Fall Risk: Low Risk Safety Measures: Call light Within Reach, Bed Alarm , Side Rails Side Rails x2, Bed position Low and Locked. Fall Precautions: Patient Fall Education Report given to KIMBERLY Martel.
[2020-09-04 08:20] VITALS: BP 128/53
[2020-09-04] MEDS: Theophylline ER 100mg ORAL SCH (08:20)
[2020-09-04] MEDS: Mycophenolate 250mg cap ORAL SCH (08:21)
[2020-09-04] MEDS: JENTADUETO ORAL SCH (08:21)
[2020-09-04] MEDS: Heparin 5000 units/ml inj SUBQ SCH (08:24)
[2020-09-04] MEDS: Pyridostigmine 60mg tab ORAL SCH ×2 (08:59→10:45)
[2020-09-04] MEDS ORDERED: Aspirin EC 81mg tab ORAL SCH (09:00)
[2020-09-04 09:18] LABS: BASOPHILS % (AUTO) 0.5 % (0.0-2.0); EOSINOPHILS % (AUTO) 0.6 % (0.0-3.0); HEMATOCRIT 44.5 % (42.0-52.0); HEMOGLOBIN 14.1 G/DL (14.2-18.0); MEAN CORPUSCULAR VOLUME 93 FL (80-99); MONOCYTES % (AUTO) 10.4 % (1.0-10.0); NEUTROPHILS % (AUTO) 69.4 % (45.0-75.0); PLATELET COUNT 292 K/UL (150-450); RED BLOOD COUNT 4.81 M/UL (4.70-6.10); RED CELL DISTRIBUTION WIDTH 13.2 % (11.6-14.8); WHITE BLOOD COUNT 8.5 K/UL (4.8-10.8)
--- NOTE | 2020-09-04 09:41 | Pulmonology Progress Note ---
Subjective ROS Limited/Unobtainable: No Constitutional: Reports: no symptoms HEENT: Repors: no symptoms Respiratory: Reports: no symptoms Cardiovascular: Reports: no symptoms Allergies: Coded Allergies: PENICILLINS (Verified Allergy, Unknown, 09/02/20) Objective Last 24 Hour Vital Signs Date Time Temp Pulse Resp B/P (MAP) Pulse Ox O2 Delivery O2 Flow Rate FiO2 09/04/20 08:20 128/53 09/04/20 08:20 89 128/53 09/04/20 08:00 97.9 89 20 128/53 (78) 97 09/04/20 07:38 92 16 99 Room Air 21 90 16 96 09/04/20 04:00 88 09/04/20 04:00 97.9 88 18 153/57 (89) 97 09/04/20 01:22 91 16 100 Room Air 21 85 16 98 09/04/20 00:00 97.9 81 18 144/80 (101) 95 09/03/20 21:00 Room Air 09/03/20 20:55 159/72 09/03/20 20:00 71 09/03/20 20:00 97.7 89 20 159/72 (101) 95 09/03/20 19:10 86 16 100 Room Air 21 83 16 98 09/03/20 16:00 82 09/03/20 16:00 98.0 82 18 146/78 (100) 95 09/03/20 12:00 97.4 85 16 144/67 (92) 96 09/03/20 12:00 81 09/03/20 11:30 155/74 Intake and Output 09/03/20 09/04/20 19:00 07:00 Intake Total 800 ml 3000 ml Balance 800 ml 3000 ml Intake Oral 800 ml 3000 ml # Voids 10 8 General Appearance: WD/WN HEENT: normocephalic, atraumatic Respiratory: chest wall non-tender, lungs clear Cardiovascular: regular rhythm Abdomen: normal bowel sounds, soft, non tender, no scars Genitourinary: normal external genitalia Skin: no rash Neurologic: ironmolder II-XII grossly normal Microbiology Date/Time Source Procedure Growth Status 09/02/20 18:50 Nasopharynx SARS-CoV-2 RdRp Gene Assay - Final Complete Laboratory Tests 09/03/20 12:00: POC Whole Blood Glucose 207H 09/03/20 17:28: POC Whole Blood Glucose 195H 09/04/20 08:40: White Blood Count 8.5, Red Blood Count 4.81, Hemoglobin 14.1L, Hematocrit 44.5, Mean Corpuscular Volume 93, Mean Corpuscular Hemoglobin 29.3, Mean Corpuscular Hemoglobin Concent 31.7L, Red Cell Distribution Width 13.2, Platelet Count 292, Mean Platelet Volume 6.1L, Neutrophils (%) (Auto) 69.4, Lymphocytes (%) (Auto) 19.0L, Monocytes (%) (Auto) 10.4H, Eosinophils (%) (Auto) 0.6, Basophils (%) (Auto) 0.5, Sodium Level [Pending], Potassium Level [Pending], Chloride Level [Pending], Carbon Dioxide Level [Pending], Blood Urea Nitrogen [Pending], Creatinine [Pending], Estimat Glomerular Filtration Rate [Pending], Glucose Level [Pending], Calcium Level [Pending], Total Bilirubin [Pending], Aspartate Amino Transf (AST/SGOT) [Pending], Alanine Aminotransferase (ALT/SGPT) [Pending], Alkaline Phosphatase [Pending], Troponin I 0.018, Pro-B-Type Natriur etic Peptide [Pending], Total Protein [Pending], Albumin [Pending], Globulin [Pending] Current Medications Medications (Trade) Dose Ordered Sig/Samina Route PRN Reason Start Time Stop Time Status Last Admin Dose Admin Acetaminophen (Tylenol) 650 mg Q4H PRN ORAL fever 09/02/20 21:15 10/02/20 21:14 Albuterol/ Ipratropium (Albuterol/ Ipratropium) 3 ml Q6HRT N 09/03/20 19:00 09/08/20 18:59 09/04/20 07:38 Amlodipine Besylate (Norvasc) 5 mg DAILY ORAL 09/03/20 09:00 10/03/20 08:59 09/04/20 08:20 Aspirin (Ecotrin) 81 mg DAILY ORAL 09/04/20 09:00 10/19/20 08:59 09/04/20 08:20 Benazepril HCl (Lotensin) 20 mg EVERY 12 HOURS ORAL 09/03/20 21:00 10/03/20 20:59 09/04/20 08:20 Dextrose (Dextrose 50%) 25 ml Q30M PRN IV Hypoglycemia 09/02/20 21:15 12/01/20 21:14 Dextrose (Dextrose 50%) 50 ml Q30M PRN IV Hypoglycemia 09/02/20 21:15 12/01/20 21:14 Heparin Sodium (Porcine) (Heparin 5000 units/ml) 5,000 units EVERY 12 HOURS SUBQ 09/03/20 09:00 10/18/20 08:59 Insulin Aspart (NovoLOG) BEFORE MEALS AND HS SUBQ 09/03/20 06:30 12/02/20 06:29 09/04/20 06:44 Mycophenolate Mofetil (Cellcept) 500 mg TWICE A DAY ORAL 09/03/20 18:00 12/02/20 17:59 09/04/20 08:21 Ondansetron HCl (Zofran) 4 mg Q6H PRN IVP Nausea & Vomiting 09/02/20 21:15 10/02/20 21:14 Patient Own Medication (Patient's Own Med) 1 ea BID ORAL 09/03/20 18:00 10/03/20 17:59 09/04/20 08:21 Polyethylene Glycol (Miralax) 17 gm HSPRN PRN ORAL Constipation 09/02/20 21:15 10/02/20 21:14 Promethazine HCl/ Codeine (Phenergan with Codeine) 5 ml Q4H PRN ORAL For Cough 09/02/20 21:15 10/02/20 21:14 Pyridostigmine [place] (Mestinon) 120 mg FIVE TIMES A DAY ORAL 09/03/20 13:00 12/02/20 08:59 09/04/20 08:59 Theophylline (Sukhi-Dur) 100 mg EVERY 12 HOURS ORAL 09/03/20 09:00 12/02/20 08:59 09/04/20 08:20 Zolpidem Tartrate (Ambien) 5 mg HSPRN PRN ORAL Insomnia 09/02/20 21:15 09/09/20 21:14 Assessment/Plan Problems: (1) Acute respiratory failure (2) Allergic asthma (3) COPD (chronic obstructive pulmonary disease) (4) Myasthenia gravis (5) Ex-smoker for more than 1 year (6) History of hypertension (7) Diabetes mellitus Assessment/Plan pt adamant about going home today US of Left chest didn't show any effusio BNP is normal and he doesn't have any peripheral edema. symptomatic treatment respiratory treatment titrate fio2 to sat of 92% resume Myasthenia medication including Cellcept and Mestinon. Echo reviewed, EF wnl dvt prophylaxis sliding scale and diabetic diet Jose Juan Palafox MD Sep 04, 2020 09:41
[2020-09-04 09:42] LABS: ALANINE AMINOTRANSFERASE 38 U/L (12-78); ALBUMIN 3.5 G/DL (3.4-5.0); ALBUMIN/GLOBULIN RATIO 0.7 (1.0-2.7); ALKALINE PHOSPHATASE 45 U/L (46-116); ANION GAP 8 mmol/L (5-15); ASPARTATE AMINO TRANSFERASE 22 U/L (15-37); BILIRUBIN,TOTAL 0.3 MG/DL (0.2-1.0); BLOOD UREA NITROGEN 15 mg/dL (7-18); CARBON DIOXIDE 28 MMOL/L (21-32); CHLORIDE 100 MMOL/L (98-107); CREATININE 1.1 MG/DL (0.55-1.30); POTASSIUM 3.5 MMOL/L (3.5-5.1); SODIUM 136 MMOL/L (136-145)
--- NOTE | 2020-09-04 10:03 | NUR ---
*-*DISCHARGE PLANNING*-* PATIENT HAS BEEN REFERRED TO: [facility] P: [phone]
--- NOTE | 2020-09-04 10:15 | Discharge Summary ---
Discharge Summary Hospital Course Date of Admission Sep 02, 2020 at 19:12 Date of Discharge Admitting Diagnosis SOB HPI Roe Graham is a 69 year old male who was admitted on Sep 02, 2020 at 19:12 for Shortness Of Breath Hospital Course Last 24 Hour Vital Signs Date Time Temp Pulse Resp B/P (MAP) Pulse Ox O2 Delivery O2 Flow Rate FiO2 09/04/20 08:20 128/53 09/04/20 08:20 89 128/53 09/04/20 08:00 97.9 89 20 128/53 (78) 97 09/04/20 07:38 92 16 99 Room Air 21 90 16 96 09/04/20 04:00 88 09/04/20 04:00 97.9 88 18 153/57 (89) 97 09/04/20 01:22 91 16 100 Room Air 21 85 16 98 09/04/20 00:00 97.9 81 18 144/80 (101) 95 09/03/20 21:00 Room Air 09/03/20 20:55 159/72 09/03/20 20:00 71 09/03/20 20:00 97.7 89 20 159/72 (101) 95 09/03/20 19:10 86 16 100 Room Air 21 83 16 98 09/03/20 16:00 82 09/03/20 16:00 98.0 82 18 146/78 (100) 95 09/03/20 12:00 97.4 85 16 144/67 (92) 96 09/03/20 12:00 81 09/03/20 11:30 155/74 GENERAL: The patient is awake and responsive, in no acute distress. HEAD AND NECK: Pupils are equal and reactive to light. Extraocular movements intact. Neck was supple. No JVD. LUNGS: Good air entry. No wheezes or rales. Decreased air in the bases. HEART: S1, S2. Regular rhythm. No murmur or gallops. ABDOMEN: Soft, nondistended, and nontender. Positive bowel sounds. Morbidly obese. EXTREMITIES: No cyanosis, clubbing, or edema. NEUROLOGIC: Cranial nerves II through XII grossly normal. Motor is 5/5 in all extremities. Discharge Discharge Vital Signs Last Vital Signs Date Time Temp Pulse Resp B/P (MAP) Pulse Ox O2 Delivery O2 Flow Rate FiO2 09/04/20 08:20 128/53 09/04/20 08:20 89 09/04/20 08:00 97.9 20 97 09/04/20 07:38 Room Air 21 Discharge Disposition Patient was discharged to home. Gualberto Pham MD Sep 04, 2020 10:15
--- NOTE | 2020-09-04 11:13 | NUR ---
NURSE NOTES: D/C HOME WITH HOME HEALTH. D/C INSTRUCTIONS GIVEN. OWN MEDS RETURNED TO PATIENT. REMOVED IV HEPLOCK. PERSONAL BELONGINGS REVIEWED. IN STABLE CONDITION. WHEELED PATIENT TO THE FRONT LOBBY.
--- NOTE | 2020-09-04 11:51 | NUR ---
*-*DISCHARGE PLANNING*-* PATIENT HAS BEEN REFERRED TO: [facility] P: [phone] S/W RICHARD, CANNOT SERVICE, PATIENT IS ON SERVICE WITH ANOTHER HOME HEALTH.
--- NOTE | 2020-09-04 15:15 | Discharge Summary ---
DATE OF ADMISSION: 09/02/2020 DATE OF DISCHARGE: 09/04/2020 HOSPITAL COURSE: This is a 69-year-old very delightful gentleman with past medical history significant for diabetes type 2, hypertension, hepatitis C positive status post Harvoni therapy for 12 weeks in 2014, history of myasthenia gravis status post thymectomy in 2000 who presented to the emergency department complaining about shortness of breath worsening on exertion. Shortly after initial evaluation, the patient was admitted to the hospital with shortness of breath possibly due to medication reaction, drug reaction. Throughout the hospital course, the patient was consulted with Dr. Mehdi Hammonds from Cardiology as well as Dr. Palafox from Pulmonary Critical Care. The patient's status gradually improved and subsequently was discharged home today to be followed up with neurologist at [facility], Dr. Jonathan Olsen. FINAL DIAGNOSES: 1. Acute respiratory distress. 2. Allergic asthma. 3. COPD. 4. Myasthenia gravis. 5. Ex-smoker. 6. Hypertension. 7. Diabetes type 2. 8. Morbid obesity. MEDICATIONS ON DISCHARGE: Continue discharge medication list. ACTIVITY: As tolerated. DIET: A 2000 ADA cardiac diet. FOLLOWUP: The patient was advised to follow up with Dr. Olsen within 1 to 2 weeks. Gualberto Pham M.D. DR: Carlos JOB#: [id number] CC:
--- NOTE | 2020-09-05 15:32 | Cardiology Report ---
APPROVED REPORT EXAM: Two-dimensional and M-mode echocardiogram with Doppler and color Doppler. INDICATION Congestive Heart Failure M-Mode DIMENSIONS IVSd1.1 (0.7-1.1cm)Left Atrium (MM)3.5 (1.6-4.0cm) LVDd4.6 (3.5-5.6cm)Aortic Root3.3 (2.0-3.7cm) PWd0.9 (0.7-1.1cm)Aortic Cusp Exc.2.3 (1.5-2.0cm) IVSs1.7 cmEPSS0.5 (>1.0cm) LVDs3.2 (2.5-4.0cm) PWs2.0 cm <Conclusion> Normal left ventricular chamber size, systolic function and wall motion. Left ventricular ejection fraction estimated to be 60 %. No left ventricular hypertrophy. No evidence of pericardial effusion. All other cardiac chamber sizes are within normal limits. Possible bi-cuspid aortic valve calcified with adequate cusp excursion. Thickened mitral valve leaflets with normal excursion. Mitral annulus and aortic root calcification. Normal pulmonic valve structure. Normal tricuspid valve structure. IVC unobtainable. A color flow and spectral Doppler study was performed and revealed: No aortic regurgitation. Trace mitral regurgitation. Mitral inflow indicate normal left ventricular diastolic function Trace tricuspid regurgitation. Tricuspid systolic velocities suggests peak right ventricular systolic pressure of 20 mmHg. No pulmonic regurgitation present.
--- NOTE | 2020-09-05 15:54 | Cardiology Report ---
APPROVED REPORT EKG Measurement Heart [id number] <Conclusion> Normal sinus rhythm Normal ECG
--- NOTE | 2020-09-05 16:17 | Cardiology Report ---
APPROVED REPORT EKG Measurement Heart [id number] [place] [id number] <Conclusion> Sinus tachycardia Nonspecific T wave abnormality Abnormal ECG
== END 2020-09-04 11:00 | disposition home or self-care (01) | DRG 189 ==
LOC: EMR 18:42 → 2E 19:12 → EDBEDREQ 20:29 → 2E 09-03 02:01
DX: J96.01 Acute respiratory failure with hypoxia (principal); T50.995A Adverse effect of other drugs, medicaments and biological substances, initial encounter; G70.00 Myasthenia gravis without (acute) exacerbation; E11.22 Type 2 diabetes mellitus with diabetic chronic kidney disease; I12.9 Hypertensive chronic kidney disease with stage 1 through stage 4 chronic kidney disease, or unspecified chronic kidney disease; B18.2 Chronic viral hepatitis C; Z88.0 Allergy status to penicillin; Z87.891 Personal history of nicotine dependence; Z86.19 Personal history of other infectious and parasitic diseases; J44.9 Chronic obstructive pulmonary disease, unspecified; E66.01 Morbid (severe) obesity due to excess calories; Z79.84 Long term (current) use of oral hypoglycemic drugs; Z79.82 Long term (current) use of aspirin; Z68.29 Body mass index [BMI] 29.0-29.9, adult; R00.0 Tachycardia, unspecified
CPT/HCPCS: 36415; 71045; 76604; 76770; 80053; 80061; 81001; 82550; 82962; 83880; 83935; 84300; 84484; 84550; 85007; 85025; 89050; 93005; 93306; 93970; 94640; 96374; 99285; J1815; J7620; U0002